=== PATIENT | female | born 1975 | race Two or more races ===

== ENCOUNTER 2017-07-15 10:11 | Outpatient (CLI) | payer OTHER | END 2017-07-15 10:49 | disposition home or self-care (01) | LOC: MAMO-SONO 10:11 | DX: R92.8 Other abnormal and inconclusive findings on diagnostic imaging of breast (principal) ==

== ENCOUNTER 2018-02-12 11:18 | Outpatient (CLI) | payer OTHER | END 2018-02-12 11:35 | disposition home or self-care (01) | LOC: MAMO-SONO 11:18 | DX: N60.11 Diffuse cystic mastopathy of right breast (principal); N60.12 Diffuse cystic mastopathy of left breast; R92.0 Mammographic microcalcification found on diagnostic imaging of breast ==

== ENCOUNTER 2018-04-07 14:48 | Emergency (ER) | payer OTHER ==
[~2018-04-07] VITALS: Ht 162.6 cm; Wt 512.6 kg
== END 2018-04-07 19:38 | disposition home or self-care (01) ==
LOC: ER 14:48
DX: M79.662 Pain in left lower leg (principal)

== ENCOUNTER 2018-09-16 10:37 | Outpatient (CLI) | payer OTHER | END 2018-09-16 10:38 | disposition home or self-care (01) | LOC: SONOGRAMA 10:37 | DX: N60.11 Diffuse cystic mastopathy of right breast (principal); N60.12 Diffuse cystic mastopathy of left breast ==

== ENCOUNTER 2019-04-03 15:54 | Emergency (ER) | payer OTHER ==
[~2019-04-03] VITALS: Ht 162.6 cm; Wt 59.9 kg
== END 2019-04-03 18:47 | disposition home or self-care (01) ==
LOC: ER 15:54
DX: N30.91 Cystitis, unspecified with hematuria (principal); R10.31 Right lower quadrant pain; R07.89 Other chest pain

== ENCOUNTER 2019-04-21 13:51 | Outpatient (CLI) | payer OTHER | END 2019-04-21 14:02 | disposition home or self-care (01) | LOC: MAMO-SONO 13:51 | DX: N60.11 Diffuse cystic mastopathy of right breast (principal); N60.12 Diffuse cystic mastopathy of left breast ==